=== PATIENT | female | born 1965 | race Caucasian/White ===

== ENCOUNTER → 2023-09-09 17:28 | Outpatient (REF) | payer OTHER, SELFPAY | LOC: HWWDC 17:28 | PROVIDERS: ATTENDING PHYSICIAN Surgery; FAMILY PHYSICIAN Family Medicine | DX: Z12.31 Encounter for screening mammogram for malignant neoplasm of breast (principal) | CPT/HCPCS: 77063; 77067 ==

== ENCOUNTER → 2024-02-24 10:55 | Outpatient (REF) | payer OTHER, SELFPAY | LOC: WDC 10:55 | PROVIDERS: ATTENDING PHYSICIAN Surgery; FAMILY PHYSICIAN Family Medicine | DX: R92.2 Inconclusive mammogram (principal); D05.01 Lobular carcinoma in situ of right breast | CPT/HCPCS: 76641 ==

== ENCOUNTER → 2024-09-22 15:50 | Outpatient (REF) | payer OTHER, SELFPAY | LOC: HWWDC 15:50 | PROVIDERS: ATTENDING PHYSICIAN Nurse Practitioner | DX: Z12.31 Encounter for screening mammogram for malignant neoplasm of breast (principal) | CPT/HCPCS: 77063; 77067 ==